=== PATIENT | male | born 1950 | race Caucasian/White ===

== ENCOUNTER 2021-07-25 06:59 | Day surgery (SDC) | payer MEDICARE, OTHER, SELFPAY ==
[2021-07-18 13:15] VITALS: BMI 34.9
--- NOTE | 2021-07-21 08:39 | MHC.SHP ---
Pre-Procedural Eval Section A Date of Service: 07/21/21 The patient is an INPATIENT: No Changes since office visit: No Cold of Flu in the past 2 weeks, No New Medical Problems, No Changes in Medication and No Patient answered all questions The History & Physical has been completed within 30 days and I have reviewed it.: Yes Section B Chief Complaint: cataract left eye Allergies: Allergies Allergy/AdvReac Type Severity Reaction Status Date / Time No Known Allergies Allergy Verified 07/18/21 13:14 Plan Diagnosis/Plan: Unchanged I have reviewed the history and physical and performed a pertinent physical examination on my patient. No changes have occurred unless specified.
--- NOTE | 2021-07-22 09:44 | HO.ANESPROP2 ---
Documented by User: Toshia Bennett NP 07/22/21 09:45 HPI - Anesthesia Eval Consult details Narrative: 70yo M for Left Cataract Extraction IOL Insertion PCP cleared No previous cataract on record [facility] Past Medical History Medical History (Updated 07/18/21 @ 13:15 by Nisha Hardwick RN) Back pain COVID-19 vaccine series completed Elevated cholesterol Gout HTN (hypertension) Hypothyroid Surgical History Surgical History (Updated 07/18/21 @ 13:15 by Nisha Hardwick RN) H/O colonoscopy Hx of wisdom tooth extraction Social History Social History Are you a primary clinical care leader to a significant other at home: No Do you presently have visiting nurse or other home services: No Patient Tobacco Use Status: Never used Tobacco Use of substances other than those prescribed or required for medical reasons: No Have you been hit, kicked, punched, or otherwise hurt by someone within the past year? If so, by whom?: No Are you DNR?: No Advance Directives: No (states is his but no official form @[facility] [place]) Advance Directives Information Provided: Yes Advance Directives on File: No Recently lost weight without trying: No Nutrition Risks: No Nutritional Risk Poor oral hygiene: No Meds Allergies Allergy/AdvReac Type Severity Reaction Status Date / Time No Known Allergies Allergy Verified 07/18/21 13:14 Home Medications Medication Instructions Recorded Confirmed Last Taken Type allopurinol 300 mg tablet 300 mg PO DAILY 07/18/21 07/18/21 Unknown History atenolol 50 mg tablet 50 mg PO BID 07/18/21 07/18/21 Unknown History chlorthalidone 25 mg tablet 25 mg PO DAILY 07/18/21 07/18/21 Unknown History levothyroxine 50 mcg tablet 50 mcg PO DAILY 07/18/21 07/18/21 Unknown History potassium chloride 10 mEq 10 meq PO DAILY 07/18/21 07/18/21 Unknown History tablet,extended release pravastatin 80 mg tablet 80 mg PO BEDTIME 07/18/21 07/18/21 Unknown History Exam Exam Date and Time: July 22, 2021 0944 Height,Weight and Vital Signs: Height 5 ft 8 in Weight 104.326 kg Assessment and Plan Assessment Anesthesia Assessment: Chart Reviewed Documented by User: Yousif Samuels MD 07/25/21 08:10 [facility] Past Medical History Medical History (Updated 07/18/21 @ 13:15 by Nisha Hardwick RN) Back pain COVID-19 vaccine series completed Elevated cholesterol Gout HTN (hypertension) Hypothyroid Family History Family history of problems with anesthesia: No Surgical History Surgical History (Updated 07/18/21 @ 13:15 by Nisha Hardwick RN) H/O colonoscopy Hx of wisdom tooth extraction History of Problems with Anesthesia: No Social History Social History Are you a primary clinical care leader to a significant other at home: No Do you presently have visiting nurse or other home services: No Patient Tobacco Use Status: Never used Tobacco Use of substances other than those prescribed or required for medical reasons: No Have you been hit, kicked, punched, or otherwise hurt by someone within the past year? If so, by whom?: No Are you DNR?: No Advance Directives: No (states is his but no official form @[facility] [place]) Advance Directives Information Provided: Yes Advance Directives on File: No Recently lost weight without trying: No Nutrition Risks: No Nutritional Risk Poor oral hygiene: No Meds Allergies Allergy/AdvReac Type Severity Reaction Status Date / Time No Known Allergies Allergy Verified 07/18/21 13:14 Home Medications Medication Instructions Recorded Confirmed Last Taken Type allopurinol 300 mg tablet 300 mg PO DAILY 07/18/21 07/18/21 Unknown History atenolol 50 mg tablet 50 mg PO BID 07/18/21 07/18/21 Unknown History chlorthalidone 25 mg tablet 25 mg PO DAILY 07/18/21 07/18/21 Unknown History levothyroxine 50 mcg tablet 50 mcg PO DAILY 07/18/21 07/18/21 Unknown History potassium chloride 10 mEq 10 meq PO DAILY 07/18/21 07/18/21 Unknown History tablet,extended release pravastatin 80 mg tablet 80 mg PO BEDTIME 07/18/21 07/18/21 Unknown History Exam Airway Mallampati Class: III TM Dist: >3cm Neck ROM: Full Loose/Missing/Broken Teeth: No Heart: [id number] Lungs: cta b/l Assessment and Plan Assessment Anesthesia Assessment: Anesthesia Plan Discussed Final Anesthetic Review Family History of Problems with Anesthesia: No History of Problems with Anesthesia: No NPO: Yes ASA Class: III Final Preanesthetic Review: No Changes in Pt Med Stat, Meds/Allgs Chart Reviewed, Consent Obtained/Reviewed and Anes Risks/Benef Reviewed Patient Risk: Intermediate Procedure Risk: Low Assessment/Block/Sedation in SS: Assess/Block/Sedation-SS Anesthetic Plan Anesthetic Plan: MAC: and Agree w/ Assess. and Plan Disposition: Standard PACU
[2021-07-25 08:01] VITALS: BP 133/76; PULSE 65; RESP 16; TEMP 36.4; O2SAT 97
[2021-07-25] MEDS: Tetracaine HCl/PF 0.5% Oph Sol 4 ML DROPS 1 DROP EYE-LEFT (08:06)
[2021-07-25] MEDS: Tropicamide 1 % Ophth Sol 3 ML BTL 1 DROP EYE-LEFT ×3 (08:09→08:16)
[2021-07-25] MEDS: Lactated Ringers 500 ML 50 ML IV (08:11)
[2021-07-25] MEDS: Phenylephrine HCL 2.5% Oph SoL 2 ML BOTTLE 1 DROP EYE-LEFT ×3 (08:11→08:18)
--- NOTE | 2021-07-25 09:10 | HO.PNOPHT ---
Ophthalmology Procedure Procedure Date of Service: 07/25/21 Ophthalmology Viscoelastic: Healoumar Duet Dual Pack Pro Ophthalmology Lenses: TECVALENTINO [id number] (21) Procedure Notes: PREOPERATIVE DIAGNOSIS: Decreased visual acuity left eye secondary to cataract POSTOPERATIVE DIAGNOSIS: Same PROCEDURE: Left cataract extraction with intraocular lens insertion SURGEON: Todd Sahni M.D. ANESTHESIA: Topical/MAC ESTIMATED BLOOD LOSS: None COMPLICATIONS: None After obtaining informed consent, the patient was brought to the operation room suite and placed in the supine position. After adequate sedation per anesthesia, topical drops of Tetracaine were given to the left eye. The eye was then prepped and draped in the usual sterile fashion. The operating room microscope was then positioned over the operative eye and a lid speculum placed. A paracentesis was created. Viscoelastic was then instilled into the anterior chamber. A three plane incision was then created temporally, utilizing a 2.85 mm keratome. Capsulotomy forceps were then utilized to create a circular tear capsulotomy. Hydrodissection and hydrodelineation were carried out until adequate mobilization of the nucleus occurred. Phacoemulsification was then utilized to remove the dense central nucleus followed by removal of the cortical material utilizing the automated aspiration irrigation unit. Viscoat elastic was instilled into the posterior capsular bag followed by placement of a posterior chamber intraocular lens without difficulty. The residual Viscoat elastic was then removed utilizing the automated IA machine. The wound was check and found to be watertight. The patient tolerated the procedure well and the lid speculum was removed. Intracameral injection of Vigamox 0.1 mL followed by a subtenon injection of Kenalog-40 0.2 mL were administered. The patient will be seen in the a.m.
[2021-07-25 09:32] VITALS: BP 107/64; PULSE 62; RESP 16; TEMP 36.6; O2SAT 96
== END 2021-07-25 09:40 | disposition home or self-care (01) ==
PROVIDERS: PCP Family Medicine; Visit Provider Ophthalmology
PROC: (CPT 66985; principal; 2021-07-25 10:10)
DX: H25.12 Age-related nuclear cataract, left eye (principal); H52.4 Presbyopia; I10 Essential (primary) hypertension; E78.00 Pure hypercholesterolemia, unspecified; M10.9 Gout, unspecified; E03.9 Hypothyroidism, unspecified; Z79.899 Other long term (current) drug therapy
CPT/HCPCS: 66984; J2250; J3010; J3300; V2632

== ENCOUNTER 2021-08-15 06:25 | Day surgery (SDC) | payer MEDICARE, OTHER, SELFPAY ==
[2021-07-18 13:17] VITALS: BMI 34.9
--- NOTE | 2021-08-11 16:12 | MHC.SHP ---
Pre-Procedural Eval Section A Date of Service: 08/11/21 The patient is an INPATIENT: No Changes since office visit: No Cold of Flu in the past 2 weeks, No New Medical Problems, No Changes in Medication and No Patient answered all questions The History & Physical has been completed within 30 days and I have reviewed it.: Yes Section B Chief Complaint: cataract right eye Allergies: Allergies Allergy/AdvReac Type Severity Reaction Status Date / Time No Known Allergies Allergy Verified 07/18/21 13:14 Plan Diagnosis/Plan: Unchanged I have reviewed the history and physical and performed a pertinent physical examination on my patient. No changes have occurred unless specified.
--- NOTE | 2021-08-12 08:53 | P.CONAN_ITS ---
Documented by User: Toshia Bennett NP 08/12/21 08:53 HPI - Anesthesia Eval Consult details Narrative: 70yo M for Right Cataract Extraction IOL Insertion PCP Cleared Left eye 07/25/21 with MAC: Fent 50, Midaz 2 PMFSH Past Medical History Medical History Back pain COVID-19 vaccine series completed Elevated cholesterol Gout HTN (hypertension) Hypothyroid Family History Family history of problems with anesthesia: No Surgical History Surgical History H/O colonoscopy Hx of wisdom tooth extraction History of Problems with Anesthesia: No Social History Social History Are you a primary senior care manager to a significant other at home: No Do you presently have visiting nurse or other home services: No Patient Tobacco Use Status: Never used Tobacco Use of substances other than those prescribed or required for medical reasons: No Have you been hit, kicked, punched, or otherwise hurt by someone within the past year? If so, by whom?: No Are you DNR?: No Advance Directives: No Advance Directives Information Provided: Yes Advance Directives on File: No Recently lost weight without trying: No Eating poorly because of decreased appetite: No Nutrition Risks: No Nutritional Risk Poor oral hygiene: No Meds Allergies Allergy/AdvReac Type Severity Reaction Status Date / Time No Known Allergies Allergy Verified 07/18/21 13:14 Home Medications Medication Instructions Recorded Confirmed Last Taken Type allopurinol 300 mg tablet 300 mg PO DAILY 07/18/21 07/18/21 Unknown History atenolol 50 mg tablet 50 mg PO BID 07/18/21 07/18/21 08/15/21 History chlorthalidone 25 mg tablet 25 mg PO DAILY 07/18/21 07/18/21 Unknown History levothyroxine 50 mcg tablet 50 mcg PO DAILY 07/18/21 07/18/21 08/15/21 History potassium chloride 10 mEq 10 meq PO DAILY 07/18/21 07/18/21 Unknown History tablet,extended release pravastatin 80 mg tablet 80 mg PO BEDTIME 07/18/21 07/18/21 Unknown History Exam Exam Date and Time: August 12, 2021 0853 Height,Weight and Vital Signs: Height 5 ft 8 in Weight 104.326 kg Assessment and Plan Assessment Anesthesia Assessment: Chart Reviewed Final Anesthetic Review Family History of Problems with Anesthesia: No History of Problems with Anesthesia: No Documented by User: Jasmina Marr MD 08/15/21 08:16 PMFSH Active Problems Active Problems: 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 No change c/w last appointment. Patient states investigated several years ago including stress test and no follow up recommended Past Medical History Medical History Back pain COVID-19 vaccine series completed Elevated cholesterol Gout HTN (hypertension) Hypothyroid Surgical History Surgical History H/O colonoscopy Hx of wisdom tooth extraction Social History Social History Are you a primary senior care manager to a significant other at home: No Do you presently have visiting nurse or other home services: No Patient Tobacco Use Status: Never used Tobacco Use of substances other than those prescribed or required for medical reasons: No Have you been hit, kicked, punched, or otherwise hurt by someone within the past year? If so, by whom?: No Are you DNR?: No Advance Directives: No Advance Directives Information Provided: Yes Advance Directives on File: No Recently lost weight without trying: No Eating poorly because of decreased appetite: No Nutrition Risks: No Nutritional Risk Poor oral hygiene: No Meds Allergies Allergy/AdvReac Type Severity Reaction Status Date / Time No Known Allergies Allergy Verified 07/18/21 13:14 Home Medications Medication Instructions Recorded Confirmed Last Taken Type allopurinol 300 mg tablet 300 mg PO DAILY 07/18/21 07/18/21 Unknown History atenolol 50 mg tablet 50 mg PO BID 07/18/21 07/18/21 08/15/21 History chlorthalidone 25 mg tablet 25 mg PO DAILY 07/18/21 07/18/21 Unknown History levothyroxine 50 mcg tablet 50 mcg PO DAILY 07/18/21 07/18/21 08/15/21 History potassium chloride 10 mEq 10 meq PO DAILY 07/18/21 07/18/21 Unknown History tablet,extended release pravastatin 80 mg tablet 80 mg PO BEDTIME 07/18/21 07/18/21 Unknown History Exam Height,Weight and Vital Signs: Height 5 ft 8 in Weight 104.326 kg Vital Signs Temp Pulse Resp BP Pulse Ox 08/15/21 06:38 96.5 F L 58 18 161/71 H 96 Airway Mallampati Class: II TM Dist: >3cm Neck ROM: Full Heart: RRR Lungs: CTAB Assessment and Plan Assessment Anesthesia Assessment: Anesthesia Plan Discussed Final Anesthetic Review NPO: Yes ASA Class: III Final Preanesthetic Review: No Changes in Pt Med Stat, Meds/Allgs Chart Reviewed, Consent Obtained/Reviewed and Anes Risks/Benef Reviewed Patient Risk: Low Procedure Risk: Low Assessment/Block/Sedation in SS: Assess/Block/Sedation-SS Anesthetic Plan Anesthetic Plan: MAC: Disposition: Standard PACU
[2021-08-15 06:38] VITALS: BP 161/71; PULSE 58; RESP 18; TEMP 35.8; O2SAT 96
[2021-08-15] MEDS: Tetracaine HCl/PF 0.5% Oph Sol 4 ML DROPS 1 DROP EYE-RIGHT (06:44)
[2021-08-15] MEDS: Lactated Ringers 500 ML 50 ML IV (06:44)
[2021-08-15] MEDS: Tropicamide 1 % Ophth Sol 3 ML BTL 1 DROP EYE-RIGHT ×3 (06:45→06:55)
[2021-08-15] MEDS: Phenylephrine HCL 2.5% Oph SoL 2 ML BOTTLE 1 DROP EYE-RIGHT ×3 (06:48→06:59)
--- NOTE | 2021-08-15 08:37 | HO.PNOPHT ---
Ophthalmology Procedure Procedure Date of Service: 08/15/21 Ophthalmology Viscoelastic: Healon Duet Dual Pack Pro Ophthalmology Lenses: TECNIS [id number] (20.5) Procedure Notes: PREOPERATIVE DIAGNOSIS: Decreased visual acuity right eye secondary to cataract POSTOPERATIVE DIAGNOSIS: Same PROCEDURE: Right cataract extraction with intraocular lens insertion SURGEON: Todd Sahni M.D. ANESTHESIA: Topical/MAC ESTIMATED BLOOD LOSS: None COMPLICATIONS: None After obtaining informed consent, the patient was brought to the operating room suite and placed in the supine position. After adequate sedation per anesthesia, topical drops of Tetracaine were given to the right eye. The eye was then prepped and draped in the usual sterile fashion. The operating room microscope was then positioned over the operative eye and a lid speculum placed. A paracentesis was created. Viscoelastic was then instilled into the anterior chamber. A three plane incision was then created temporally, utilizing a 2.85 mm keratome. Capsulotomy forceps were then utilized to create a circular tear capsulotomy. Hydrodissection and hydrodelineation were carried out until adequate mobilization of the nucleus occurred. Phacoemulsification was then utilized to remove the dense central nucleus followed by removal of the cortical material utilizing the automated aspiration irrigation unit. Viscoelastic was instilled into the posterior capsular bag followed by placement of a posterior chamber intraocular lens without difficulty. The residual Viscoelastic was then removed utilizing the automated IA machine. The wound was checked and found to be watertight. The patient tolerated the procedure well and the lid speculum was removed. Intracameral injection of Vigamox 0.1 mL followed by a subtenon injection of Kenalog-40 0.2 mL were administered. The patient will be seen in the a.m.
[2021-08-15 09:04] VITALS: BP 101/70; PULSE 63; RESP 16; TEMP 36.1; O2SAT 95
== END 2021-08-15 09:11 | disposition home or self-care (01) ==
PROVIDERS: PCP Family Medicine; Visit Provider Ophthalmology
PROC: (CPT 66985; principal; 2021-08-15 08:30)
DX: H25.11 Age-related nuclear cataract, right eye (principal); H52.4 Presbyopia; E78.00 Pure hypercholesterolemia, unspecified; I10 Essential (primary) hypertension; E03.9 Hypothyroidism, unspecified; M10.9 Gout, unspecified; Z79.899 Other long term (current) drug therapy
CPT/HCPCS: 66984; J2250; J2405; J3010; J3300; V2632